=== PATIENT | female | born 1945 | race Two or more races ===

== ENCOUNTER 2020-01-06 20:15 | Emergency (ER) | payer MEDICARE, MEDICAID ==
[~2020-01-06] VITALS: Ht 167.6 cm; Wt 100.0 kg
[2020-01-06] MEDS ORDERED: BACITRACIN ZINC OINT UDPKT TOP ONE (21:30)
[2020-01-06] MEDS ORDERED: TETANUS, DIPHTHERIA, PERTUSSIS VAC/PF 0.5ML (>7YR OLD) IM ONE (21:30)
[2020-01-06 21:57] VITALS: BP 133/74
== END 2020-01-06 22:01 | disposition home or self-care (01) ==
LOC: ER 20:15
DX: T21.14XA Burn of first degree of lower back, initial encounter (principal); T23.102A Burn of first degree of left hand, unspecified site, initial encounter; M19.90 Unspecified osteoarthritis, unspecified site; H54.40 Blindness, one eye, unspecified eye; X10.0XXA Contact with hot drinks, initial encounter; Y93.89 Activity, other specified; Y92.9 Unspecified place or not applicable; Z88.6 Allergy status to analgesic agent; Z86.79 Personal history of other diseases of the circulatory system; Z98.51 Tubal ligation status; Z90.710 Acquired absence of both cervix and uterus; Z98.890 Other specified postprocedural states
CPT/HCPCS: 90471; 90715; 99283